=== PATIENT | female | born 1990 | race Caucasian/White ===

== ENCOUNTER → 2017-08-31 | Outpatient (CLI) | payer BC, OTHER | LOC: CAT 09:13 | DX: R10.32 Left lower quadrant pain (principal); R10.2 Pelvic and perineal pain ==

== ENCOUNTER → 2018-06-22 | Outpatient (CLI) | payer BC | LOC: MRI 08:06 | DX: M24.10 Other articular cartilage disorders, unspecified site (principal); M25.561 Pain in right knee ==